=== PATIENT | female | born 1950 | race Caucasian/White ===

== ENCOUNTER 2024-04-16 16:15 | Inpatient (IN) | payer MEDICAID ==
[~2024-04-16] VITALS: Ht 172.7 cm; Wt 64.9 kg
[2024-04-16] MEDS ORDERED: IV NORMAL SALINE 250 ML IV ONE (17:22)
[2024-04-16] MEDS ORDERED: IOHEXOL 300MG/ML 100 ML INFUS..BTL ONE (17:22)
[2024-04-16] MEDS: IV NORMAL SALINE 1000 ML BAG IV ONE (17:22)
[2024-04-16] MEDS ORDERED: SWABABLE VALVE TRANSFER SET EA MC ONE (17:23)
[2024-04-16 17:53] LABS: HEMATOCRIT 23.2 % (31.2-41.9); HEMOGLOBIN 8.1 g/dL (10.9-14.3); MEAN CORPUSCULAR HEMOGLOBIN 30.9 uug (24.7-32.8); MEAN CORPUSCULAR HGB CONC 35 g/dL (32.3-35.6); MEAN CORPUSCULAR VOLUME 88.1 fL (75.5-95.3); PLATELET COUNT (AUTO) 331 K/uL (179-408); RED BLOOD CELL COUNT(AUTO) 2.64 MIL/uL (3.63-4.92); RED CELL DISTRIBUTION WIDTH 16.1 % (12.3-17.7); WHITE BLOOD COUNT (AUTO) 4.3 K/uL (3.8-11.8)
[2024-04-16 17:55] LABS: DIFFERENTIAL COMMENT 1
[2024-04-16 18:02] LABS: ALANINE AMINOTRANSFERASE 191 U/L (14-59); ALBUMIN 1.7 g/dL (3.4-5.0); ALKALINE PHOSPHATASE 1432 U/L (50-136); ASPARTATE AMINOTRANSFERASE 86 U/L (15-37); BILIRUBIN,DIRECT 11.2 mg/dL (0.0-0.2); BILIRUBIN,TOTAL 13.1 mg/dL (0.2-1.0); CALCIUM 10.8 mg/dL (8.5-10.1); CARBON DIOXIDE 25 mmol/L (21-32); CHLORIDE 83 mmol/L (98-107); CREATININE 0.7 mg/dL (0.6-1.3); GLUCOSE 118 mg/dL (74-106); TOTAL PROTEIN, SERUM 4.8 g/dL (6.4-8.2); UREA NITROGEN, BLOOD 16 mg/dL (7-18)
[2024-04-16 18:06] LABS: POTASSIUM 2.8 mmol/L (3.5-5.1); SODIUM SERUM 118 mmol/L (136-145)
[2024-04-16] MEDS ORDERED: POTASSIUM BICARBONATE/CIT AC 25 MEQ TABLET.EFF ONE (18:58)
[2024-04-16] MEDS: IV NS 1000 ML 1,000 ML IV ONE (19:00)
[2024-04-16] MEDS: POTASSIUM BICARBONATE/CIT AC 25 MEQ TABLET.EFF PO ONE (19:00)
[2024-04-16] MEDS ORDERED: ACETAMINOPHEN 325 MG TABLET ONE (20:18)
[2024-04-16] MEDS: VANCOMYCIN IV 1,000 MG in IV DEXTROSE 5% 250 ML IV ONE (20:30)
[2024-04-16] MEDS ORDERED: PIPERACILLIN/TAZO 4.5 GM VIAL IV ONE (20:30)
[2024-04-16] MEDS: PIPERACILLIN SODIUM/TAZOBACTAM 4.5 G in IV DEXTROSE 5% 50 ML IV SCH (20:32)
[2024-04-16] MEDS ORDERED: VANCOMYCIN IV 200 ML ONE (20:40)
[2024-04-16] MEDS: ACETAMINOPHEN 325 MG TABLET PO ONE (20:57)
[2024-04-16 21:25] LABS: ANISOCYTOSIS 1+; LYMPHOCYTES % (MANUAL) 6 % (20-40); MONOCYTES % (MANUAL) 2 % (2-10); NEUTROPHILS % (MANUAL) 92 % (42-75); PLATELET ESTIMATE ADEQUATE
[2024-04-16 21:27] LABS: STOMATOCYTES 1+
[2024-04-16 23:30] VITALS: BP 126/64; TEMP 98.5; O2SAT 94
[2024-04-17] MEDS ORDERED: MAGNESIUM HYDROXIDE 30 ML LIQUID UDC PO PRN (02:00)
[2024-04-17] MEDS ORDERED: ONDANSETRON 4 MG/2 ML VIAL IV PRN (02:00)
[2024-04-17] MEDS: IV NS 1000 ML 1,000 ML IV PRN (02:56)
[2024-04-17] MEDS: ENOXAPARIN SODIUM 40 MG/0.4 ML DISP.SYRIN SQ SCH (02:58)
[2024-04-17] MEDS ORDERED: PIPERACILLIN/TAZOBACTAM/D5W 50 ML IV ONE (03:25)
[2024-04-17] MEDS ORDERED: PIPERACILLIN SODIUM/TAZOBACTAM 4.5 G in IV DEXTROSE 5% 50 ML IV SCH (04:00)
[2024-04-17 04:47] VITALS: BP 144/69; TEMP 99; O2SAT 96
[2024-04-17] MEDS: PIPERACILLIN SODIUM/TAZOBACTAM 3.375 G in IV DEXTROSE 5% 50 ML IV SCH ×2 (05:04→13:51)
[2024-04-17 07:15] LABS: CALCIUM 9.7 mg/dL (8.5-10.1); CREATININE 0.7 mg/dL (0.6-1.3)
[2024-04-17 07:37] LABS: *BLOOD, URINE NEGATIVE (NEGATIVE); *CLARITY,URINE CLEAR (CLEAR); *COLOR,URINE YELLOW (YELLOW); *KETONES,URINE NEGATIVE (NEGATIVE); *PROTEIN,URINE 1+ (NEGATIVE); LEUKOCYTE ESTERASE ,URINE NEGATIVE (NEGATIVE); NITRITE, URINE NEGATIVE (NEGATIVE); UGLUCOSE NEGATIVE (NEGATIVE)
[2024-04-17 07:50] LABS: *BILIRUBIN,URIN 3+ (NEGATIVE)
[2024-04-17 08:07] LABS: POTASSIUM 2.7 mmol/L (3.5-5.1)
[2024-04-17 08:51] LABS: BACTERIA,URINE FEW /HPF (NONE SEEN); SQUAMOUS EPITHELIAL CELL,UR FEW /HPF (NONE SEEN); URINE AMORPHOUS URATE FEW /HPF; WBC,URINE 0-3 /HPF (0-3)
[2024-04-17] MEDS: VANCOMYCIN HCL 750 MG in IV DEXTROSE 5% 250 ML IV SCH (08:58)
[2024-04-17] MEDS: POTASSIUM CHLORIDE 10 MEQ TAB.PRT.SR PO SCH (14:00)
[2024-04-17 15:46] LABS: CALCIUM 9.7 mg/dL (8.5-10.1); CREATININE 0.7 mg/dL (0.6-1.3); POTASSIUM 3.1 mmol/L (3.5-5.1)
[2024-04-17 16:43] VITALS: BP 135/64; TEMP 97.7; O2SAT 99
[2024-04-17 18:55] LABS: CALCIUM 9.5 mg/dL (8.5-10.1); CREATININE 0.8 mg/dL (0.6-1.3)
[2024-04-17 19:45] VITALS: BP 121/61; TEMP 97.6; O2SAT 94
[2024-04-17] MEDS: MELATONIN 3 MG TABLET PO SCH (21:08)
[2024-04-18] VITALS (10 sets, daily range): BP systolic 114–144; BP diastolic 61–77; TEMP 98–98.4; O2SAT 95–98
[2024-04-18 07:34] LABS: WHITE BLOOD COUNT (AUTO) 3.8 K/uL (3.8-11.8)
[2024-04-18 07:37] LABS: EOSINOPHILS % (AUTO) 0.3 % (0.0-7.0); LYMPHOCYTES # (AUTO) 0.4 K/uL (0.8-4.8); LYMPHOCYTES % (AUTO) 9.5 % (20.5-51.5); MEAN CORPUSCULAR HEMOGLOBIN 31.2 uug (24.7-32.8); MEAN CORPUSCULAR HGB CONC 35 g/dL (32.3-35.6); MEAN CORPUSCULAR VOLUME 89.8 fL (75.5-95.3); MONOCYTES # (AUTO) 0.7 K/uL (0.1-1.30); MONOCYTES % (AUTO) 17.4 % (0.0-11.0); NEUTROPHILS # (AUTO) 2.7 K/uL (1.8-8.9); NEUTROPHILS % (AUTO) 72.8 % (38.5-71.5); PLATELET COUNT (AUTO) 275 K/uL (179-408)
[2024-04-18 07:50] LABS: VANCOMYCIN,TROUGH 11.7 ug/mL (10.0-20.0)
[2024-04-18 07:58] LABS: THYROID STIMULATING HORMONE 0.558 mIU/mL (0.358-3.740)
[2024-04-18 08:04] LABS: URIC ACID 1.8 mg/dL (2.6-6.0)
[2024-04-18 08:13] LABS: CALCIUM 9.1 mg/dL (8.5-10.1); CARBON DIOXIDE 23 mmol/L (21-32); CHLORIDE 90 mmol/L (98-107); CHOLESTEROL 517 mg/dL (<200); CREATININE 0.8 mg/dL (0.6-1.3); GLUCOSE 89 mg/dL (74-106); HDL CHOLESTEROL 12 mg/dL (40-60); MAGNESIUM 1.8 mg/dL (1.8-2.4); POTASSIUM 2.9 mmol/L (3.5-5.1); SODIUM SERUM 122 mmol/L (136-145); TRIGLYCERIDES 248 MG/DL (30-150); UREA NITROGEN, BLOOD 14 mg/dL (7-18)
[2024-04-18] MEDS: VANCOMYCIN IV 1,000 MG in IV DEXTROSE 5% 250 ML IV SCH (08:24)
[2024-04-18 08:27] LABS: DIFFERENTIAL COMMENT 1
[2024-04-18 08:40] LABS: HEMATOCRIT 19.8 % (31.2-41.9); HEMOGLOBIN 6.9 g/dL (10.9-14.3)
[2024-04-18 08:52] LABS: BILIRUBIN,DIRECT 9.4 mg/dL (0.0-0.2); BILIRUBIN,TOTAL 10.9 mg/dL (0.2-1.0); TOTAL PROTEIN, SERUM 4.2 g/dL (6.4-8.2)
[2024-04-18 08:58] LABS: ALBUMIN 1.3 g/dL (3.4-5.0)
[2024-04-18] MEDS: IV SODIUM CHLORIDE 3% 500 ML IV SCH (09:17)
[2024-04-18] MEDS: POTASSIUM CHLORIDE 20 MEQ TAB.PRT.SR PO SCH (10:56)
[2024-04-18 14:48] LABS: NEUTROPHILS % (MANUAL) 88 % (42-75)
[2024-04-18 14:49] LABS: BAND % (MANUAL) 0 % (0-10); LYMPHOCYTES % (MANUAL) 9 % (20-40); MONOCYTES % (MANUAL) 3 % (2-10); PLATELET ESTIMATE ADEQUATE
[2024-04-18 14:50] LABS: ANISOCYTOSIS 1+; HYPOCHROMASIA 2+
[2024-04-18 15:32] LABS: *SODIUM RNDM,URINE 8 mmol/L (40-220)
[2024-04-18] MEDS: NEUTRA PHOS PACKET PO ONE (16:54)
[2024-04-18] MEDS: ACETAMINOPHEN 325 MG TABLET PO PRN (21:18)
[2024-04-18] MEDS: ZOLPIDEM 5 MG TABLET PO ONE (23:03)
[2024-04-19 08:57] LABS: CARBON DIOXIDE 23 mmol/L (21-32); CHLORIDE 93 mmol/L (98-107); GLUCOSE 87 mg/dL (74-106); POTASSIUM 3.1 mmol/L (3.5-5.1); SODIUM SERUM 126 mmol/L (136-145)
[2024-04-19 08:58] LABS: CALCIUM 8.7 mg/dL (8.5-10.1); CREATININE 0.7 mg/dL (0.6-1.3); FERRITIN 7709 ng/mL (8-252); IRON, SERUM 37 ug/dL (50-175); UREA NITROGEN, BLOOD 11 mg/dL (7-18)
[2024-04-19 08:59] LABS: ALANINE AMINOTRANSFERASE 111 U/L (14-59); ALBUMIN 1.3 g/dL (3.4-5.0); ALKALINE PHOSPHATASE 1226 U/L (50-136); ASPARTATE AMINOTRANSFERASE 57 U/L (15-37); BILIRUBIN,DIRECT 7.8 mg/dL (0.0-0.2); BILIRUBIN,TOTAL 8.9 mg/dL (0.2-1.0); LACTATE DEHYDROGENASE 186 U/L (81-234)
[2024-04-19 09:00] LABS: MAGNESIUM 1.7 mg/dL (1.8-2.4); TOTAL PROTEIN, SERUM 4.2 g/dL (6.4-8.2)
[2024-04-19 09:06] LABS: HEPATITIS A AB, IgM Negative (Negative); HEPATITIS B CORE AB, IgM Negative (Negative); HEPATITIS C VIRUS ANTIBODY Non Reactive (Non Reactive)
[2024-04-19 09:44] LABS: RED BLOOD CELL COUNT(AUTO) 2.91 MIL/uL (3.63-4.92)
[2024-04-19 09:47] LABS: HEMATOCRIT 27.6 % (31.2-41.9); MEAN CORPUSCULAR HGB CONC 33 g/dL (32.3-35.6); MEAN CORPUSCULAR VOLUME 95.1 fL (75.5-95.3); PLATELET COUNT (AUTO) 232 K/uL (179-408); RED CELL DISTRIBUTION WIDTH 17.3 % (12.3-17.7)
[2024-04-19 12:00] VITALS: BP 136/74; TEMP 98.2; O2SAT 96
[2024-04-19] MEDS: POTASSIUM CHLORIDE 20 MEQ TAB.PRT.SR PO SCH (14:18)
[2024-04-19 15:08] LABS: ANISOCYTOSIS 1+; BAND % (MANUAL) 4 % (0-10); LYMPHOCYTES % (MANUAL) 10 % (20-40); MONOCYTES % (MANUAL) 12 % (2-10); NEUTROPHILS % (MANUAL) 74 % (42-75); PLATELET ESTIMATE ADEQUATE
[2024-04-19] MEDS ORDERED: VITAMINS A AND D OINT 42 GM TUBE TP PRN (15:30)
[2024-04-19] MEDS: NEUTRA PHOS PACKET PO ONE (15:38)
[2024-04-19 16:00] VITALS: BP 132/64; TEMP 97.6; O2SAT 97
[2024-04-19 20:12] VITALS: BP 137/76; TEMP 97.3; O2SAT 99
[2024-04-19 20:32] VITALS: O2SAT 99
[2024-04-20] MEDS: ENOXAPARIN SODIUM 40 MG/0.4 ML DISP.SYRIN SQ SCH (08:18)
[2024-04-20 09:50] VITALS: O2SAT 97
[2024-04-20 11:21] VITALS: BP 148/73; TEMP 97.6; O2SAT 99
[2024-04-20 15:08] VITALS: BP 141/80; TEMP 97.6; O2SAT 98
[2024-04-20 19:45] VITALS: BP 146/78; TEMP 98.5; O2SAT 96
[2024-04-20 20:55] VITALS: O2SAT 97
[2024-04-20] MEDS: ZOLPIDEM 5 MG TABLET PO ONE (22:21)
[2024-04-20] MEDS: BENZONATATE 100 MG CAPSULE PO PRN (22:34)
[2024-04-21 04:00] VITALS: BP 143/67; TEMP 98.4; O2SAT 95
[2024-04-21 08:09] LABS: AFP, TUMOR MARKER 7.3 ng/mL (0.0-9.2); CANCER ANTIGEN 15-3 84.5 U/mL (0.0-25.0); CARBOHYDRATE ANTIGEN, 19-9 310 U/mL (0-35); CARCINOEMBRYONIC AG (CEA) 1.6 ng/mL (0.0-4.7); FOLATE (FOLIC ACID), SERUM 13.5 ng/mL (>3.0)
[2024-04-21 08:46] LABS: BILIRUBIN,TOTAL 5.7 mg/dL (0.2-1.0); CALCIUM 8.5 mg/dL (8.5-10.1); CREATININE 0.7 mg/dL (0.6-1.3); MAGNESIUM 1.6 mg/dL (1.8-2.4); PHOSPHOROUS 2.3 mg/dL (2.5-4.9); TOTAL PROTEIN, SERUM 4.3 g/dL (6.4-8.2)
[2024-04-21 11:07] LABS: *IMMUNOGLOBULIN G, SERUM 650 mg/dL (586-1602); IMMUNOGLOBULIN A, SERUM 136 mg/dL (64-422); IMMUNOGLOBULIN M, SERUM 26 mg/dL (26-217)
[2024-04-21 12:00] VITALS: BP 149/78; TEMP 97.6; O2SAT 96
[2024-04-21 13:06] LABS: A/G RATIO 0.8 (0.7-1.7); ALBUMIN 1.6 g/dL (2.9-4.4); ALPHA-1-GLOBULIN 0.3 g/dL (0.0-0.4); ALPHA-2-GLOBULIN 0.6 g/dL (0.4-1.0); BETA GLOBULIN 0.6 g/dL (0.7-1.3); GAMMA GLOBULIN 0.6 g/dL (0.4-1.8); GLOBULIN, TOTAL 2.1 g/dL (2.2-3.9); M-SPIKE 0.3 g/dL (Not Observed)
[2024-04-21 13:12] LABS: HEMOGLOBIN 8.1 g/dL (10.9-14.3)
[2024-04-21] MEDS: PROTEIN SUPPLEMENT (PROSTAT) 30 ML LIQUID PO SCH (13:15)
[2024-04-21 13:17] LABS: HEMATOCRIT 23.8 % (31.2-41.9); MEAN CORPUSCULAR HEMOGLOBIN 30.8 uug (24.7-32.8); MEAN CORPUSCULAR HGB CONC 34 g/dL (32.3-35.6); MEAN CORPUSCULAR VOLUME 90.4 fL (75.5-95.3); PLATELET COUNT (AUTO) 240 K/uL (179-408); RED BLOOD CELL COUNT(AUTO) 2.63 MIL/uL (3.63-4.92); WHITE BLOOD COUNT (AUTO) 2.7 K/uL (3.8-11.8)
[2024-04-21 13:35] LABS: DIFFERENTIAL COMMENT 1
[2024-04-21 14:01] LABS: ALBUMIN 1.4 g/dL (3.4-5.0); POTASSIUM 2.4 mmol/L (3.5-5.1)
[2024-04-21] MEDS ORDERED: POTASSIUM CHLORIDE 20 MEQ TAB.PRT.SR PO ONE (14:15)
[2024-04-21] MEDS: POTASSIUM CHLORIDE 20 MEQ TAB.PRT.SR PO ONE ×2 (14:29→16:22)
[2024-04-21 15:49] LABS: BAND % (MANUAL) 1 % (0-10); LYMPHOCYTES % (MANUAL) 10 % (20-40); MONOCYTES % (MANUAL) 8 % (2-10); NEUTROPHILS % (MANUAL) 81 % (42-75)
[2024-04-21 15:50] LABS: PLATELET ESTIMATE ADEQUATE
[2024-04-21 15:51] LABS: ANISOCYTOSIS 1+
[2024-04-21 16:00] VITALS: BP 147/78; TEMP 98.2; O2SAT 97
[2024-04-21] MEDS: NEUTRA PHOS PACKET PO ONE (16:22)
[2024-04-21 20:00] VITALS: BP 147/70; TEMP 97.3; O2SAT 94
[2024-04-21] MEDS: ZOLPIDEM 5 MG TABLET PO ONE (21:50)
[2024-04-22] MEDS: VANCOMYCIN IV 1,000 MG in IV DEXTROSE 5% 250 ML IV SCH (01:37)
[2024-04-22 02:11] LABS: HEPATITIS Be ANTIGEN Negative (Negative)
[2024-04-22 06:41] VITALS: BP 143/67; TEMP 97.1; O2SAT 95
[2024-04-22 08:12] LABS: FREE KAPPA LT CHAINS SERUM 15.2 mg/L (3.3-19.4); FREE LAMBDA LT CHAIN SERUM 19.2 mg/L (5.7-26.3); KAPPA/LAMBDA RATIO SERUM 0.79 (0.26-1.65)
[2024-04-22 08:31] LABS: BILIRUBIN,DIRECT 4.4 mg/dL (0.0-0.2); BILIRUBIN,TOTAL 5.2 mg/dL (0.2-1.0); CALCIUM 8.2 mg/dL (8.5-10.1); CREATININE 0.8 mg/dL (0.6-1.3); MAGNESIUM 1.5 mg/dL (1.8-2.4); PHOSPHOROUS 2.7 mg/dL (2.5-4.9); TOTAL PROTEIN, SERUM 4.5 g/dL (6.4-8.2)
[2024-04-22 08:50] LABS: ALBUMIN 1.5 g/dL (3.4-5.0); POTASSIUM 2.5 mmol/L (3.5-5.1)
[2024-04-22 09:00] LABS: HEMATOCRIT 24.6 % (31.2-41.9); HEMOGLOBIN 8.6 g/dL (10.9-14.3); MEAN CORPUSCULAR HEMOGLOBIN 31.4 uug (24.7-32.8); MEAN CORPUSCULAR HGB CONC 35 g/dL (32.3-35.6); MEAN CORPUSCULAR VOLUME 90.1 fL (75.5-95.3); PLATELET COUNT (AUTO) 245 K/uL (179-408); RED BLOOD CELL COUNT(AUTO) 2.73 MIL/uL (3.63-4.92); RED CELL DISTRIBUTION WIDTH 16.3 % (12.3-17.7); WHITE BLOOD COUNT (AUTO) 3.4 K/uL (3.8-11.8)
[2024-04-22 09:03] LABS: DIFFERENTIAL COMMENT 1
[2024-04-22] MEDS: POTASSIUM CHLORIDE 20 MEQ POWDER PACKET PO ONE ×3 (09:11→16:12)
[2024-04-22] MEDS: MAGNESIUM OXIDE 400 MG TABLET PO ONE (09:11)
[2024-04-22 10:18] LABS: ANISOCYTOSIS 1+; BAND % (MANUAL) 7 % (0-10); LYMPHOCYTES % (MANUAL) 9 % (20-40); MONOCYTES % (MANUAL) 6 % (2-10); NEUTROPHILS % (MANUAL) 78 % (42-75); PLATELET ESTIMATE ADEQUATE
[2024-04-22 12:00] VITALS: BP 145/75; TEMP 97.7; O2SAT 97
[2024-04-22 16:03] VITALS: BP 138/78; TEMP 97.6; O2SAT 97
[2024-04-22] MEDS: PIPERACILLIN SODIUM/TAZOBACTAM 3.375 G in IV DEXTROSE 5% 100 ML IV SCH (17:03)
[2024-04-22 20:36] VITALS: BP 154/81; TEMP 98.1; O2SAT 97
[2024-04-22] MEDS: ZOLPIDEM 5 MG TABLET PO PRN (21:30)
[2024-04-23 07:35] LABS: CALCIUM 8.5 mg/dL (8.5-10.1); CREATININE 0.7 mg/dL (0.6-1.3); MAGNESIUM 1.5 mg/dL (1.8-2.4); PHOSPHOROUS 2.2 mg/dL (2.5-4.9)
[2024-04-23 07:42] LABS: POTASSIUM 2.6 mmol/L (3.5-5.1)
[2024-04-23] MEDS: POTASSIUM CHLORIDE 20 MEQ POWDER PACKET PO ONE ×3 (08:32→16:17)
[2024-04-23] MEDS: MAGNESIUM OXIDE 400 MG TABLET PO ONE (08:33)
[2024-04-23 11:05] VITALS: BP 142/78; TEMP 97.8; O2SAT 95
[2024-04-23] MEDS ORDERED: MAGNESIUM OXIDE 400 MG TABLET PO ONE (11:45)
[2024-04-23 14:37] LABS: HIV-1 p24 ANTIGEN NON REACTIVE (NONREACTIVE); HIV-1/2 ANTIBODY NON REACTIVE (NONREACTIVE)
[2024-04-23 15:10] VITALS: BP 116/78; TEMP 97.8; O2SAT 96
[2024-04-23] MEDS: NEUTRA PHOS PACKET PO ONE (16:17)
[2024-04-23 20:38] VITALS: BP 140/70; TEMP 99.1; O2SAT 95
[2024-04-24 06:34] VITALS: BP 139/75; TEMP 97.7; O2SAT 96
[2024-04-24 07:44] LABS: CALCIUM 8.7 mg/dL (8.5-10.1); CREATININE 0.7 mg/dL (0.6-1.3); PHOSPHOROUS 2.5 mg/dL (2.5-4.9)
[2024-04-24 07:48] LABS: POTASSIUM 2.7 mmol/L (3.5-5.1)
[2024-04-24] MEDS ORDERED: POTASSIUM CHLORIDE 20 MEQ POWDER PACKET PO ONE (08:00)
[2024-04-24] MEDS: GUAIFENESIN/CODEINE 5 ML LIQUID UDC PO PRN (09:03)
[2024-04-24] MEDS: POTASSIUM CHLORIDE 20 MEQ TAB.PRT.SR PO ONE (09:04)
[2024-04-24] MEDS: POTASSIUM CHLORIDE 50 ML IV SCH (09:04)
[2024-04-24] MEDS: MAGNESIUM OXIDE 400 MG TABLET PO ONE (09:07)
[2024-04-24 11:46] VITALS: BP 122/74; TEMP 97.8; O2SAT 94
[2024-04-24] MEDS: HYDROCODONE/APAP 5-325MG TABLET PO PRN (13:04)
[2024-04-24 14:04] LABS: *SODIUM RNDM,URINE 98 mmol/L (40-220)
[2024-04-24 14:05] LABS: CALCIUM 8.7 mg/dL (8.5-10.1); CREATININE 0.7 mg/dL (0.6-1.3); POTASSIUM 2.9 mmol/L (3.5-5.1)
[2024-04-24] MEDS: POTASSIUM CHLORIDE 20 MEQ POWDER PACKET PO ONE ×2 (15:56→17:37)
[2024-04-24 16:00] VITALS: BP 140/71; TEMP 98.3; O2SAT 96
[2024-04-24] MEDS ORDERED: ZINC OXIDE OINT 30 GM TUBE TOP PRN (17:00)
[2024-04-24] MEDS ORDERED: REMEDY ESSENTIAL ZINC PASTE 113 GM TOP PRN (17:00)
[2024-04-24 21:58] VITALS: BP 138/79; TEMP 97.8; O2SAT 91
[2024-04-25 06:42] VITALS: BP 134/79; TEMP 98.4; O2SAT 91
[2024-04-25 11:15] LABS: CALCIUM 8.7 mg/dL (8.5-10.1); CREATININE 0.7 mg/dL (0.6-1.3)
[2024-04-25 11:17] LABS: POTASSIUM 2.6 mmol/L (3.5-5.1)
[2024-04-25 12:00] VITALS: BP 149/77; TEMP 98.3; O2SAT 91
[2024-04-25] MEDS ORDERED: POTASSIUM CHLORIDE 20 MEQ POWDER PACKET PO ONE ×2 (12:00→17:00)
[2024-04-25] MEDS: POTASSIUM CHLORIDE 20 MEQ TAB.PRT.SR PO SCH (13:16)
[2024-04-25] MEDS: POTASSIUM CHLORIDE 20 MEQ POWDER PACKET PO ONE (15:52)
== END 2024-04-25 15:30 | disposition hospice, home (50) | DRG 840 ==
LOC: ER 16:16 → TELE3 22:57 → MEDSURG3 04-17 02:20
PROVIDERS: ADMIT Nurse Practitioner Acute Care; ATTEND Nurse Practitioner Acute Care
PROC: 05HB33Z Insertion of Infusion Device into Right Basilic Vein, Percutaneous Approach (ICD-10-PCS; principal; 2024-04-18)
PROC: 30233N1 Transfusion of Nonautologous Red Blood Cells into Peripheral Vein, Percutaneous Approach (ICD-10-PCS; 2024-04-18)
DX: C85.13 Unspecified B-cell lymphoma, intra-abdominal lymph nodes (principal); E43 Unspecified severe protein-calorie malnutrition; J15.69 Pneumonia due to other Gram-negative bacteria; K83.1 Obstruction of bile duct; E87.1 Hypo-osmolality and hyponatremia; J91.8 Pleural effusion in other conditions classified elsewhere; R17 Unspecified jaundice; D63.8 Anemia in other chronic diseases classified elsewhere; Z66 Do not resuscitate; Z53.20 Procedure and treatment not carried out because of patient's decision for unspecified reasons; E87.6 Hypokalemia; E88.09 Other disorders of plasma-protein metabolism, not elsewhere classified; Z90.49 Acquired absence of other specified parts of digestive tract; R16.2 Hepatomegaly with splenomegaly, not elsewhere classified; D72.821 Monocytosis (symptomatic); Z68.21 Body mass index [BMI] 21.0-21.9, adult; Z91.199 Patient's noncompliance with other medical treatment and regimen due to unspecified reason; R00.0 Tachycardia, unspecified
CPT/HCPCS: 36415; 70030-TC; 71045; 74181; 82105; 82378; 82746; 82784; 83550; 83605; 83615; 83735; 84100; 84155; 84165; 84300; 84443; 84484; 84550; 85025; 85730; 86300; 86301; 86334; 86705; 86709; 86803; 86850; 86900; 86901; 86920; 87040; 87350; 87806; 93005; A4663; A6213; G0378; J1650; J2543; J3370; J3480; J3490; J7040; J7050; P9016; Q9967